=== PATIENT | female | born 1960 | race Caucasian/White ===

== ENCOUNTER → 2018-06-03 | Outpatient (CLI) | payer SELFPAY ==
[2018-06-03 11:58] LABS: HEMOGLOBIN 19.8 g/dL (12.5-16.0)
[2018-06-03 12:05] LABS: HEMATOCRIT 63.7 % (37.0-47.0)
== END ==
LOC: LAB 11:32
PROVIDERS: Internal Medicine
DX: D75.1 Secondary polycythemia (principal)